=== PATIENT | male | born 1945 | race Caucasian/White ===

== ENCOUNTER 2023-04-05 13:16 | Outpatient (CLI) | payer MEDICARE | END 2023-04-05 13:17 | disposition home or self-care (01) | LOC: ULT 13:16 | PROVIDERS: ATTEND Nurse Practitioner Family | DX: I27.20 Pulmonary hypertension, unspecified (principal); I08.3 Combined rheumatic disorders of mitral, aortic and tricuspid valves | CPT/HCPCS: 93306 ==

== ENCOUNTER 2023-11-26 10:43 | Emergency (ER) | payer MEDICARE | END 2023-11-26 11:40 | disposition home or self-care (01) | LOC: ERS 10:43 | DX: S86.011A Strain of right Achilles tendon, initial encounter (principal); S86.012A Strain of left Achilles tendon, initial encounter; S80.212A Abrasion, left knee, initial encounter; S00.81XA Abrasion of other part of head, initial encounter; E11.22 Type 2 diabetes mellitus with diabetic chronic kidney disease; I12.0 Hypertensive chronic kidney disease with stage 5 chronic kidney disease or end stage renal disease; N18.6 End stage renal disease; Z99.2 Dependence on renal dialysis; W01.0XXA Fall on same level from slipping, tripping and stumbling without subsequent striking against object, initial encounter | CPT/HCPCS: 70450; 72125 ==